=== PATIENT | male | born 1945 | race Caucasian/White ===

== ENCOUNTER 2017-06-06 11:58 | Emergency (ER) | payer MEDICARE, OTHER ==
[~2017-06-06] VITALS: Ht 177.8 cm; Wt 97.0 kg
[~2017-06-06 11:58] MED LIST: ALPR0.25 PO; ASPI81TA82 PO; ATOR40TA PO; COEN400C PO; EZET10 PO; LEVA500T33 PO; MULTTAB50 PO; NALT1TAB3 PO; SERT-132 PO; TOBRA.3%O EACH EYE
[2017-06-06 12:00] VITALS: BP 130/71; PULSE 65; RESP 20; TEMP 97.3; O2SAT 98
[2017-06-06] MEDS ORDERED: LIPI40TA PO (12:14)
[2017-06-06] MEDS ORDERED: ASPI81CH CHEW (12:14)
[2017-06-06] MEDS ORDERED: ALPR0.25 PO (12:14)
[2017-06-06] MEDS ORDERED: BUPR150CR PO (12:14)
[2017-06-06] MEDS ORDERED: SERT-132 PO (12:14)
[2017-06-06] MEDS ORDERED: EZET1TAB8 PO (12:14)
[2017-06-06] MEDS ORDERED: SODIUM CHLORIDE 0.9% FLUSH 5 ML FLUSH IV FLUSH PRN (12:15)
[2017-06-06 12:30] VITALS: BP 166/88; PULSE 76; RESP 16; O2SAT 95
--- NOTE | 2017-06-06 12:33 | PD ---
HPI Chief Complaint: Altered Mental Status Time Seen by Provider: 12:20 Travel History International Travel<30 days: No Contact w/Intl Traveler<30days: No Traveled to known affect area: No History of Present Illness HPI 72-year-old male presents to the ER today brought in by EMS, apparently had woken up feeling okay according to , had gone to the neighbor's house and came back, and had talked to the lawn service people this morning without issues. However, later on when the services people came to knock on the door, patient was fairly disoriented, and they called ambulance. He appears disoriented, states he does not remember what happened. He admits that he may have been drinking. Modifying Factors: None Associated Signs & Symptoms: Altered mental status Risk Factors: Elderly PFSH Past Medical History Anxiety: Yes Cancer: Yes (PROSTATE) High Cholesterol: Yes Coronary Artery Disease: Yes Diminished Hearing: Yes Genitourinary: Yes (POSSIBLE PROSTAE CANCER) Hypertension: Yes Immunizations Current: Yes (NOT SURE OF DATES) Tetanus Vaccination: Unknown Influenza Vaccination: Yes Past Surgical History Coronary Artery Bypass Graft: Yes (3 VESSEL) Oral Surgery: Yes Social History Alcohol Use: Yes (OCC) Tobacco Use: No (QUIT 4 YEARS AGO) Substance Use: No Allergies-Medications (Allergen,Severity, Reaction): Coded Allergies: No Known Allergies (Unverified , 03/27/16) Reported Meds & Prescriptions Reported Meds & Active Scripts Active Reported Aspirin 81 Mg Chew 81 Mg CHEW HS Lipitor (Atorvastatin Calcium) 40 Mg Tab 40 Mg PO HS Ezetimibe 10 Mg Tab 10 Mg PO DAILY Sertraline (Sertraline HCl) 50 Mg Tab 50 Mg PO DAILY Wellbutrin SR 12 HR (Bupropion HCl) 150 Mg Tab 150 Mg PO DAILY Alprazolam 0.25 Mg Tab 0.25 Mg PO Q8H PRN Review of Systems ROS Limitations: Altered Mental Status Physical Exam Narrative GENERAL: Well-developed elderly white male patient currently in mild distress. Awake, alert, but disoriented. SKIN: Focused skin assessment warm/dry. HEAD: Atraumatic. Normocephalic. EYES: Pupils equal and round. No scleral icterus. No injection or drainage. ENT: No nasal bleeding or discharge. Mucous membranes pink and moist. NECK: Trachea midline. No JVD. CARDIOVASCULAR: Regular rate and rhythm. No murmur appreciated. RESPIRATORY: No accessory muscle use. Clear to auscultation. Breath sounds equal bilaterally. GASTROINTESTINAL: Abdomen soft, non-tender, nondistended. Hepatic and splenic margins not palpable. MUSCULOSKELETAL: No obvious deformities. No clubbing. No cyanosis. No edema. NEUROLOGICAL: Awake and alert. No obvious cranial nerve deficits. Motor grossly within normal limits. Normal speech. PSYCHIATRIC: Appropriate mood and affect; insight and judgment normal. Data Data Last Documented VS Vital Signs Date Time Temp Pulse Resp B/P Pulse Ox O2 Delivery O2 Flow Rate FiO2 06/06/17 12:30 76 16 166/88 95 06/06/17 12:00 97.3 Orders Blood Glucose (06/06/17 12:00) Oximetry (06/06/17 12:00) Iv Access Insert/Monitor (06/06/17 12:00) Ecg Monitoring (06/06/17 12:00) Oxygen Administration (06/06/17 12:00) Complete Blood Count With Diff (06/06/17 12:00) Alcohol (Ethanol) (06/06/17 12:00) Ammonia (06/06/17 12:06) Sodium Chloride 0.9% Flush (Ns Flush) (06/06/17 12:15) Drug Screen, Random Urine (06/06/17 12:06) Chest, Single Ap (06/06/17 12:20) Ct Brain W/O Iv Contrast(Rout) (06/06/17 12:20) Labs Laboratory Tests Test 06/06/17 06/06/17 12:45 13:10 White Blood Count 10.5 TH/MM3 Red Blood Count 5.15 MIL/MM3 Hemoglobin 15.1 GM/DL Hematocrit 45.4 % Mean Corpuscular Volume 88.2 FL Mean Corpuscular Hemoglobin 29.3 PG Mean Corpuscular Hemoglobin 33.2 % Concent Red Cell Distribution Width 14.1 % Platelet Count 224 TH/MM3 Mean Platelet Volume 8.5 FL Neutrophils (%) (Auto) 61.6 % Lymphocytes (%) (Auto) 28.4 % Monocytes (%) (Auto) 5.1 % Eosinophils (%) (Auto) 2.6 % Basophils (%) (Auto) 2.3 % Neutrophils # (Auto) 6.5 TH/MM3 Lymphocytes # (Auto) 3.0 TH/MM3 Monocytes # (Auto) 0.5 TH/MM3 Eosinophils # (Auto) 0.3 TH/MM3 Basophils # (Auto) 0.2 TH/MM3 CBC Comment DIFF FINAL Differential Comment Ammonia 28 MCMOL/L Ethyl Alcohol Level 300 MG/DL Urine Barbiturates Screen NEG Urine Amphetamines Screen NEG Urine Benzodiazepines Screen NEG Urine Cocaine Screen NEG Urine Cannabinoids Screen NEG MDM Medical Decision Making Medical Screen Exam Complete: Yes Emergency Medical Condition: Yes Medical Record Reviewed: Yes Interpretation(s) Laboratory Tests Test 06/06/17 12:45 Basophils (%) (Auto) 2.3 % (0.0-2.0) Ethyl Alcohol Level 300 MG/DL (0-5) Last [address] 06/06/17 1220 Signed Impressions: Service Date/Time: Tuesday, June 06, 2017 13:02 - CONCLUSION: 1. No evidence of acute infarct, hemorrhage, mass or edema. 2. Benign calcifications noted bilaterally in the basal ganglia. Bulmaro Trevino MD Chest X-Ray 06/06/17 1220 Signed Impressions: Service Date/Time: Tuesday, June 06, 2017 12:44 - CONCLUSION: 1. Mild cardiomegaly 2. No evidence of significant congestion or acute air space disease. 3. Status post CABG Bulmaro Trevino MD Differential Diagnosis Altered mental statusintoxication versus metabolic issues versus dementia versus acute intracranial processes Narrative Course Vital signs are stable in the ER. Patient is conversant although he does look mildly disoriented. He has no focal neurological deficits. CAT scan of the brain is negative for any signs of acute intracranial processes. Lab work shows that his alcohol levels 300. At this point, it seems that he is intoxicated and my plan would be to release him with who will be driving him home. Return for new issues as needed. The plan has been discussed with patient's and she states understanding. Diagnosis Primary Impression: Alcohol intoxication Disposition: DISCHARGE HOME Condition: Stable Georges Duggan MD Jun 06, 2017 12:33
[2017-06-06 13:01] LABS: AUTOMATED NEUTROPHIL # 6.5 TH/MM3 (1.8-7.7); BASOPHIL # 0.2 TH/MM3 (0-0.2); BASOPHIL % 2.3 % (0.0-2.0); EOSINOPHIL # 0.3 TH/MM3 (0-0.4); EOSINOPHIL % 2.6 % (0.0-4.0); HEMATOCRIT 45.4 % (39.0-51.0); HEMO FLAGS DIFF FINAL; LYMPH % 28.4 % (9.0-44.0); MEAN CELL VOLUME 88.2 FL (80.0-100.0); MEAN CORPUSCULAR HEMOGLOBIN 29.3 PG (27.0-34.0); MEAN CORPUSCULAR HGB CONC 33.2 % (32.0-36.0); MONO % 5.1 % (0.0-8.0); NEUT % 61.6 % (16.0-70.0); PLATELET COUNT 224 TH/MM3 (150-450); RED BLOOD COUNT 5.15 MIL/MM3 (4.50-5.90); RED CELL DISTRIBUTION WIDTH 14.1 % (11.6-17.2); WHITE BLOOD COUNT 10.5 TH/MM3 (4.0-11.0)
--- NOTE | 2017-06-06 13:30 | RADRPT ---
EXAM DATE/TIME: 06/06/2017 13:02 [facility] COMPARISON: No previous studies available for comparison. INDICATIONS : Found confused. RADIATION DOSE: 43.80 CTDIvol (mGy) ; Patient motion MEDICAL HISTORY : Cardiovascular disease. Hypertension. SURGICAL HISTORY : CABG ENCOUNTER: Initial ACUITY: 1 day PAIN SCALE: 0/10 LOCATION: cranial TECHNIQUE: Multiple contiguous axial images were obtained of the head. Using automated exposure control and adj ustment of the mA and/or kV according to patient size, radiation dose was kept as low as reasonably a chievable to obtain optimal diagnostic quality images. DICOM format image data is available electro nically for review and comparison. FINDINGS: CEREBRUM: The ventricles are normal for age. No evidence of midline shift, mass lesion, hemorrhage or acute in farction. Calcification is identified bilaterally within the basal ganglia. No extra-axial fluid col lections are seen. POSTERIOR FOSSA: The cerebellum and brainstem are intact. The 4th ventricle is midline. The cerebellopontine angle i s unremarkable. EXTRACRANIAL: The visualized portion of the orbits is intact. SKULL: The calvaria is intact. No evidence of skull fracture. CONCLUSION: 1. No evidence of acute infarct, hemorrhage, mass or edema. 2. Benign calcifications noted bilaterally in the basal ganglia. Bulmaro Trevino MD on June 06, 2017 at 13:26 Board Certified Radiologist. This report was verified electronically.
--- NOTE | 2017-06-06 13:39 | RADRPT ---
EXAM DATE/TIME: 06/06/2017 12:44 [facility] COMPARISON: No previous studies available for comparison. INDICATIONS : Syncope MEDICAL HISTORY : Cardiovascular disease SURGICAL HISTORY : CABG. ENCOUNTER: Initial ACUITY: 1 day PAIN SCORE: 0/10 LOCATION: Bilateral chest FINDINGS: Heart is mildly enlarged. There is evidence of previous open heart surgery. Mild vascular fullness is noted. There is no evidence of interstitial edema, acute air space or pleur al effusion. CONCLUSION: 1. Mild cardiomegaly 2. No evidence of significant congestion or acute air space disease. 3. Status post CABG Bulmaro Trevino MD on June 06, 2017 at 13:37 Board Certified Radiologist. This report was verified electronically.
[2017-06-06 14:20] VITALS: BP 93/55; PULSE 65; RESP 16; O2SAT 97
[2017-06-06] MEDS ORDERED: SODIUM CHLOR 0.9% 1000 ML INJ 1,000 ML IV ONE (14:30)
[2017-06-06 15:05] VITALS: BP 138/71
== END 2017-06-06 15:16 | disposition home or self-care (01) ==
LOC: PHED 11:58
DX: F10.129 Alcohol abuse with intoxication, unspecified (principal); E78.00 Pure hypercholesterolemia, unspecified; I25.10 Atherosclerotic heart disease of native coronary artery without angina pectoris; I10 Essential (primary) hypertension; Y90.1 Blood alcohol level of 20-39 mg/100 ml; Z87.891 Personal history of nicotine dependence; Z95.1 Presence of aortocoronary bypass graft
CPT/HCPCS: 70450; 71010; 80307; 82140; 85025; 96360; 99285; J7030